=== PATIENT | female | born 1945 | race Caucasian/White ===

== ENCOUNTER 2019-11-08 01:27 | Day surgery (SDC) | payer MEDICARE, SELFPAY ==
[2019-10-31 14:16] VITALS: BMI 26.4
[2019-11-08 06:40] VITALS: BP 144/69; PULSE 79; RESP 20; TEMP 36.7; O2SAT 99
--- NOTE | 2019-11-08 07:15 | PM.HPGS ---
History of Present Illness History of Present Illness Consent: Risks, benefits, and alternatives have been discussed and questions answered. Patient agrees to proceed with procedure. Chief complaint: Personal Hx Colon Polyps Narrative: Danyell Barraza is a 74 year old W female undergoing screening colonoscopy secondary history of colonic polyps. Patient is asymptomatic. No family history of colon cancer. Meds Home Medications and Allergies Home Medications Medication Instructions Recorded Confirmed Type amlodipine 15 mg PO DAILY 10/31/19 11/08/19 History ascorbic acid (vitamin C) [Vitamin 1 g PO DAILY 10/31/19 10/31/19 History C] calcium carbonate [Calcium 500] 1,500 mg PO BID 10/31/19 10/31/19 History cholecalciferol (vitamin D3) 4,000 unit PO DAILY 10/31/19 10/31/19 History [Vitamin D3] coconut oil 1,000 mg PO BID 10/31/19 10/31/19 History estradiol 0.5 mg PO DAILY 10/31/19 10/31/19 History glucos sul [id number]-[id number]-C-Mn 550 cap PO BID 10/31/19 10/31/19 History [Glucosamine Chondroitin] rabeprazole 20 mg PO HS 10/31/19 10/31/19 History temazepam [Restoril] 15 mg PO HS PRN 10/31/19 10/31/19 History turmeric root extract 1,053 mg PO BID 10/31/19 10/31/19 History vitamin E 400 unit PO DAILY 10/31/19 10/31/19 History Allergies Allergy/AdvReac Type Severity Reaction Status Date / Time No Known Allergies Allergy Mild Verified 11/08/19 06:52 Vital Signs Vital Signs - 24 hr 11/08/19 06:40 Temperature 36.7 C Pulse Rate 79 Respiratory Rate 20 Blood Pressure 144/69 H Pulse Oximetry 99 Exam Const: Orientation/consciousness: patient oriented x3 Resp: Auscultation: clear to auscultation bilaterally Cardio: Rate: regular rate Rhythm: regular rhythm Heart sounds: no murmurs GI: GI Palp: Yes Soft to palpation, No Tenderness to palpation present (GI), Yes No hepatosplenomegaly present and No Palpable mass present Auscultation: normal bowel sounds Neuro: General: patient oriented x3 and no focal motor deficits Extrem: General: no pedal edema Assessment and Plan Additional Plan Screening colonoscopy secondary history of colonic polyps
[2019-11-08] MEDS: LACTATED RINGERS 1,000 ML 150 ML IV CONT (07:17)
--- NOTE | 2019-11-08 07:50 | WPDANESEPPF ---
Anes - Initial Pre Proc Eval Procedure: Operation Date: 11/08/19 08:00 Proposed Procedures p Screening Colonoscopy - Rene Abdi MD Date/Time: 11/08/19 07:50 Surgeon: Rene Abdi MD Pre Op Diagnosis: Personal Hx Colon Polyps Patient Data Age: 74 Gender: F Height: 5 ft 4 in Weight: 69.7 kg Last Vital Signs Temp 98.0 F 11/08/19 06:40 Pulse 79 11/08/19 06:40 Resp 20 11/08/19 06:40 BP 144/69 H 11/08/19 06:40 Pulse Ox 99 11/08/19 06:40 Allergies Allergy/AdvReac Type Severity Reaction Status Date / Time No Known Allergies Allergy Mild Verified 11/08/19 06:52 Home Medications Medication Instructions Recorded Confirmed Type amlodipine 15 mg PO DAILY 10/31/19 11/08/19 History ascorbic acid (vitamin C) [Vitamin 1 g PO DAILY 10/31/19 10/31/19 History C] calcium carbonate [Calcium 500] 1,500 mg PO BID 10/31/19 10/31/19 History cholecalciferol (vitamin D3) 4,000 unit PO DAILY 10/31/19 10/31/19 History [Vitamin D3] coconut oil 1,000 mg PO BID 10/31/19 10/31/19 History estradiol 0.5 mg PO DAILY 10/31/19 10/31/19 History glucos sul [id number]-C-Mn 550 cap PO BID 10/31/19 10/31/19 History [Glucosamine Chondroitin] rabeprazole 20 mg PO HS 10/31/19 10/31/19 History temazepam [Restoril] 15 mg PO HS PRN 10/31/19 10/31/19 History turmeric root extract 1,053 mg PO BID 10/31/19 10/31/19 History vitamin E 400 unit PO DAILY 10/31/19 10/31/19 History Patient hx anesthesia problems: none Family hx anesthesia problems: none PMFSH Past Medical History Medical History (Updated 11/08/19 @ 07:50 by Pasquale Constantino MD) GERD (gastroesophageal reflux disease) Hypertension Anes - Eval Final PreProcedure Day of Procedure 11/08/19 07:50 Patient weight: normal Heart: regular rate and rhythm Lungs: clear to auscultation Airway: Mallampati scale class II Neurological: alert and oriented Last oral intake: >/= 8 hours ASA classification: II Emergent: no Anesthetic plan: proceed Anesthesia type and monitoring: general GIVS and standard monitoring Informed Consent: The patient's anesthetic plan and its attendant risks and benefits were discussed with the patient/family/POA. Questions were solicited and answers provided to the satisfaction of the patient/family/POA.
[2019-11-08 08:34] VITALS: BP 99/48; PULSE 68; RESP 18; O2SAT 97
[2019-11-08 08:44] VITALS: BP 117/56; PULSE 58; RESP 23; O2SAT 100
[2019-11-08 08:54] VITALS: BP 128/59; PULSE 57; RESP 21; O2SAT 100
== END 2019-11-08 09:00 | disposition home or self-care (01) ==
PROVIDERS: PCP Internal Medicine; Visit Provider Internal Medicine Gastroenterology
PROC: 0DJD8ZZ Inspection of Lower Intestinal Tract, Via Natural or Artificial Opening Endoscopic (ICD-10-PCS; CPT 45378; principal; 2019-11-08 08:00)
DX: Z12.11 Encounter for screening for malignant neoplasm of colon (principal); K63.5 Polyp of colon; K62.89 Other specified diseases of anus and rectum; K21.9 Gastro-esophageal reflux disease without esophagitis; I10 Essential (primary) hypertension
CPT/HCPCS: 45380; 88305; J2001; J2704; J7120

== ENCOUNTER 2023-09-28 11:00 | Outpatient (RCR) | payer MEDICARE, SELFPAY | END 2023-10-04 09:47 | disposition home or self-care (01) | LOC: ANHCPREHAB 11:00 | PROVIDERS: PCP Internal Medicine; Visit Provider Internal Medicine Cardiovascular Disease | DX: I20.89 Other forms of angina pectoris (principal) | CPT/HCPCS: 93798 ==

== ENCOUNTER 2024-06-13 16:26 | Emergency (ER) | payer MEDICARE, SELFPAY ==
--- NOTE | ~2024-06-13 | XR_ITS ---
EXAMINATION: XR toe 5th RT min 2V DATE: 06/13/2024 17:07 INDICATION: Right fifth toe injury and pain. TECHNIQUE: 4 views of right fifth toe were obtained. COMPARISON: None. FINDINGS: There is a transverse fracture of base of fifth proximal phalanx. The distal fracture fragm ent demonstrates 24 degrees dorsal angulation. 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 IMPRESSION: 1. Transverse fracture of base of fifth proximal phalanx. Reviewed, dictated and finalized at location A.
--- NOTE | 2024-06-13 16:32 | ED.LOWEXIN ---
HPI - Extremity Injury (Lower) General Chief Complaint: Extremity Injury, Lower Stated Complaint: Toe Injury Time Seen by Provider: 06/13/24 16:57 Source: patient and RN notes reviewed Mode of arrival: ambulatory Limitations: no limitations History of Present Illness HPI Narrative: 79-year-old female presents with concerned injury of the 5th digit of the right foot. She reports she injured the toe 1 month ago and has been roberta taping it since then. She is concerned it is ?not in alignment?. complaint: foot injury Related Data Home Medications Medication Instructions Recorded Confirmed amlodipine 5 mg tablet 15 mg PO DAILY 10/31/19 11/08/19 ascorbic acid (vitamin C) 1,000 mg 1 g PO DAILY 10/31/19 10/31/19 tablet (Vitamin C) calcium carbonate (Calcium 500) 1,500 mg PO BID 10/31/19 10/31/19 cholecalciferol (vitamin D3) 100 4,000 unit PO DAILY 10/31/19 10/31/19 mcg (4,000 unit) capsule (Vitamin D3) coconut oil 1,000 mg capsule 1,000 mg PO BID 10/31/19 10/31/19 estradiol 0.5 mg tablet 0.5 mg PO DAILY 10/31/19 10/31/19 glucosamine sulf dipot 550 cap PO BID 10/31/19 10/31/19 chlr,msm,chond 550 mg-C 30 mg-princess 1 mg capsule (Glucosamine Chondroitin) rabeprazole 20 mg tablet,delayed 20 mg PO HS 10/31/19 10/31/19 release temazepam 15 mg capsule (Restoril) 15 mg PO HS PRN difficulty sleeping 10/31/19 10/31/19 turmeric root extract 1,053 mg 1,053 mg PO BID 10/31/19 10/31/19 tablet vitamin E 268 mg (400 unit) capsule 400 unit PO DAILY 10/31/19 10/31/19 aspirin 81 mg tablet,delayed mg 06/13/24 06/13/24 release zolpidem 10 mg tablet mg 06/13/24 Allergies Allergy/AdvReac Type Severity Reaction Status Date / Time No Known Allergies Allergy Mild Verified 06/13/24 16:34 Review of Systems Review of Systems: CONSTITUTIONAL: Denies malaise, chills, sweats, or fever. SKIN: Denies rash or itching, open skin, laceration, abrasion, redness, warmth, swelling. MUSCULOSKELETAL: Reports pain to the 5th digit of the right foot NEUROLOGIC: Denies numbness, weakness All systems reviewed & are unremarkable except as noted in HPI and below PMFSH Past Medical History Medical History (Updated 06/13/24 @ 17:17 by Kalee Hernandez NP) GERD (gastroesophageal reflux disease) Hypertension Family History Family History Mother HLD (hyperlipidemia) Hypertension Acute myocardial infarction Social History Social History Smoking packs per day: 0.5 Smoking cigarettes per day: 10.0 Years smoked: 16 Smoking pack-years: 8.00 Smoking status: Former smoker Tobacco type: cigarettes Smoking end date: 10/10/87 Comments At time of signature, agree with nursing past medical, surgical, social and family history. There is no relevant family history pertinent to the presenting complaint Exam Narrative: GENERAL: Well-appearing, well-nourished, and in no acute distress. HEAD: Normocephalic, atraumatic. EYES: PERRLA, conjunctivae clear NECK: Supple. CHEST: Speaks in full sentences. No respiratory distress. HEART: Regular rate and rhythm. Normal and equal peripheral pulses. EXTREMITIES: 5th digit of the right foot has grossly normal strength and sensation, gross normal range of motion. No edema or ecchymosis.Capillary refill less than 3 seconds. SKIN: Warm, dry, no rash. NEURO: Alert and oriented x3. PSYCH: Normal mood and affect Course Course Emergency Course: Patient is aware of diagnosis, understands and agrees to treatment plan. Anticipatory guidance given. Patient agrees to follow-up as directed and is aware of reasons to seek care at the emergency department. Portions of this record may have been created with voice recognition software Level of Care: Express Care Visit Vital Signs Vital signs: Reviewed. MDM - Extremity Injury (Lower) MDM Narrative Medical decisi
[2024-06-13 16:35] VITALS: BP 131/70; PULSE 88; RESP 18; TEMP 36.8; O2SAT 97
== END 2024-06-13 17:30 | disposition home or self-care (01) ==
PROVIDERS: Emergency Provider Nurse Practitioner; PCP Internal Medicine
DX: S92.501A Displaced unspecified fracture of right lesser toe(s), initial encounter for closed fracture (principal); X58.XXXA Exposure to other specified factors, initial encounter; K21.9 Gastro-esophageal reflux disease without esophagitis; I10 Essential (primary) hypertension; Z79.82 Long term (current) use of aspirin; Z87.891 Personal history of nicotine dependence
CPT/HCPCS: 73660; 99214; G0463